=== PATIENT | female | born 1935 | race Caucasian/White ===

== ENCOUNTER 2018-09-15 15:26 | Emergency (ER) | payer MEDICARE ==
[~2018-09-15] VITALS: Ht 160 cm; Wt 85.0 kg
[~2018-09-15 15:26] MED LIST: ASPIRIN LOW DOS81 M2 PO; BENZONATATE200 MG PO; BISOPROL FUM5 MG PO; CARVEDILOL6.25 MG PO; CINNAMON500 M1 PO; CIPROFLOXACN500 MG PO; DOXYCYCL HYC100 MG PO; FLUARIX QUADRIV1 INJ IM; FLUOXETINE10 M2 PO; FUROSEMIDE20 MG PO; HYDRALAZINE25 MG PO; LOSARTAN POTASS50 MG PO; MULTI VIT PO; OS-CAL 500500 M1 PO; PNEUMOVAX 23 IM; PRAVASTATIN40 MG PO
[2018-09-15] MEDS ORDERED: CARVEDILOL6.25 MG PO (15:49)
[2018-09-15] MEDS ORDERED: CINNAMON500 MG PO (15:50)
[2018-09-15 16:02] LABS: URINE BILIRUBIN - DIPSTICK NEGATIVE (NEGATIVE); URINE BLOOD DIPSTICK MODERATE (NEGATIVE); URINE COLOR YELLOW; URINE GLUCOSE - DIPSTICK NEGATIVE (NEGATIVE); URINE KETONE NEGATIVE (NEGATIVE); URINE LEUK ESTERASE LARGE (NEGATIVE); URINE NITRITE - DIPSTICK POSITIVE (Negative); URINE PROTEIN - DIPSTICK 30 mg/dL (NEG-TRACE); URINE SPECIFIC GRAVITY 1.015
[2018-09-15] MEDS ORDERED: CEPHALEXIN500 M1 PO (16:06)
[2018-09-15 16:10] VITALS: BP 140/68
[2018-09-15 16:31] LABS: URINE RBC TNTC RBC/hpf (0-5)
[2018-09-15 16:32] LABS: URINE BACTERIA MANY hpf; URINE SQUAMOUS EPITHELIAL CELL FEW EPI/hpf (0-FEW); URINE WBC TNTC WBC/hpf (0-5)
== END 2018-09-15 16:13 | disposition home or self-care (01) ==
LOC: ED 15:26
PROVIDERS: Family Medicine
DX: N39.0 Urinary tract infection, site not specified (principal); B96.20 Unspecified Escherichia coli [E. coli] as the cause of diseases classified elsewhere; I10 Essential (primary) hypertension; F32.9 Major depressive disorder, single episode, unspecified; Z87.440 Personal history of urinary (tract) infections

== ENCOUNTER 2021-10-07 10:50 | Emergency (ER) | payer MEDICARE ==
[~2021-10-07] VITALS: Ht 160 cm; Wt 82.0 kg
[~2021-10-07 10:50] MED LIST changes: +CEPHALEXIN500 M1 PO; +CINNAMON500 MG PO
[2021-10-07 11:35] LABS: HEMATOCRIT 42.2 % (37.0-47.0); HEMOGLOBIN 13.3 g/dl (12.0-16.0); IMMATURE GRANULOCYTES 0.2 % (0.0-5.0); MEAN CORPUSCULAR HGB 30.6 pG CALC (26.0-32.0); MEAN CORPUSCULAR HGB CONC 31.5 g/dL CAL (32.0-36.0); NEUT# 2.91 thou/uL (2.00-7.15); RED BLOOD COUNT 4.35 mill/uL (4.20-5.60); RED CELL DISTRI WIDTH 13.7 % (11.5-15.5)
[2021-10-07 11:52] LABS: ALBUMIN 3.8 g/dL (3.2-5.0); BILIRUBIN, TOTAL 0.6 mg/dL (0.0-1.4); CREATININE 1.3 mg/dL (0.5-1.0); POTASSIUM 4.6 mmol/l (3.5-5.1); TOTAL PROTEIN 6.9 g/dL (6.3-8.2)
[2021-10-07 12:06] VITALS: BP 152/67
== END 2021-10-07 13:29 | disposition home or self-care (01) ==
LOC: ED 10:50
PROVIDERS: Family Medicine
DX: R51.9 Headache, unspecified (principal); I10 Essential (primary) hypertension; E78.00 Pure hypercholesterolemia, unspecified; F32.A Depression, unspecified; Z87.828 Personal history of other (healed) physical injury and trauma